=== PATIENT | female | born 1970 | race Asian ===

== ENCOUNTER 2017-01-15 11:32 | Emergency (ER) | payer OTHER ==
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
[~2017-01-15 11:32] MED LIST: AUGMENTIN875 MG PO; MACROBID100 MG PO; ORUDIS75 M1 PO
== END 2017-01-15 14:46 | disposition home or self-care (01) ==
LOC: CED 11:32 → CFTX 11:32
DX: S33.5XXA Sprain of ligaments of lumbar spine, initial encounter (principal); F17.200 Nicotine dependence, unspecified, uncomplicated; X50.9XXA Other and unspecified overexertion or strenuous movements or postures, initial encounter; Y92.9 Unspecified place or not applicable
CPT/HCPCS: 72100; 84703; 96372; 99284; J1885